=== PATIENT | female | born 1965 | race Caucasian/White ===

== ENCOUNTER 2016-11-02 18:43 | Emergency (ER) | payer MEDICARE, MEDICAID ==
[2016-11-02 19:13] VITALS: BP 96/52
[2016-11-02] MEDS ORDERED: Acetaminophen/HYDROcodone 325-5 MG Tab PO ONE (19:27)
--- NOTE | 2016-11-03 04:27 | ER ---
DATE SEEN: 11/02/2016 TIME SEEN: The patient was seen at 1900 hours. HISTORY OF PRESENT ILLNESS: This is a 51-year-old who has chronic hip pain, back pain, and is morbidly obese at 340 pounds, 5 feet plus inches and BMI of 58, comes in with a history of trying to get into a vehicle yesterday and had difficulty getting in. She did not have the entry step stool for getting out, she slid out and fell on buttock resulting in a strain in her hip and moderate pain in the right hip. She "pulled a muscle" in the right hip. She has chronic pain. Pain has now increased to 10/10. She does not use codeine because it makes her pass out. She gets along with hydrocodone. She has multiple medications on list, psychiatric medications, for anxiety, depression, fibromyalgia, headaches, and shortness of breath. MEDICATIONS: 1. Tizanidine. 2. Prednisone. 3. Oxycodone. 4. Topiramate. 5. Pregabalin. 6. Oxcarbazepine (Trileptal). 7. Nebulizers p.r.n. 8. Albuterol nebulizers p.r.n. or DuoNeb p.r.n. 9. Lasix. 10.Duloxetine. 11.Clonazepam. Today, she took two tablets as one dose of her tizanidine and feels somewhat sleepy. She is apologetic for this. Normally takes 1 tablet three times a day. She has chronic low back pain for the past 15 years and occasionally sees a chiropractor who treat the muscles. PAST MEDICAL HISTORY: No hypertension. No diabetes. REVIEW OF SYSTEMS: Denies headache, neck stiffness, shortness of breath but gets short of breath with exertion carrying groceries or other items. She has severe low back pain. Denies chest pain. Denies bladder incontinence. FAMILY HISTORY: Father had myocardial infarction. Brother and sister have sleep apnea. ALLERGIES: Codeine. PHYSICAL EXAMINATION: GENERAL: The patient is very somnolent and dropped her blood Pressure. She has a mild cough. No fever. The patient is very apologetic for coming in. Edentulous, massively obese. Markedly enlarged thighs, hips and lower legs. No edema in lower extremities. VITAL SIGNS: Blood pressure 95/52, heart rate 52, respirations 16, oxygen saturation 97%, temperature 36.3 degrees centigrade. HEENT: PERRLA intact. Pharynx without abnormality, except no teeth. NECK: No bruits in neck. LUNGS: Clear to auscultation without rales, rhonchi, or wheezes. HEART: S1, S2. No murmur. No irregular rate and rhythm. ABDOMEN: Soft, and increased abdominal girth. Thus I cannot palpate anything in the abdomen because of this. EXTREMITIES: Lower extremities, right hip slightly decreased range of motion, but without instability. Right knee without pain or discomfort, joint line. No pedal edema. Left knee is negative. Left hip is negative. Deep tendon reflexes upper extremities 1+ knee jerks. Hypoactive ankle jerks 1+. Sensation intact lower extremities. DERM: No change in dermis. ASSESSMENT: Right hip strain. I did not have her lie down. I did not go through lengthy range of motion of the hip because of her weight and discomfort of getting up and out of the wheelchair. She will be treated empirically for hip muscle strain. She has 8 tablets of hydrocodone, to get her through the weekend. No prescription given. Follow up with doctor as needed next week. Use Tylenol 1000 mg and ibuprofen 600 mg together every 6 hours for pain. DIAGNOSES: Right hip strain secondary to her fall, morbid obesity, fibromyalgia, severe chronic low back pain, anxiety, and depression. /[id number] ROHAN/JOAN FRYE
== END 2016-11-02 20:00 | disposition home or self-care (01) ==
LOC: FB.ED 18:43
DX: S76.011A Strain of muscle, fascia and tendon of right hip, initial encounter (principal); E66.01 Morbid (severe) obesity due to excess calories; M79.1 Myalgia; M54.5 Low back pain; G89.29 Other chronic pain; F41.9 Anxiety disorder, unspecified; F32.9 Major depressive disorder, single episode, unspecified; Z88.5 Allergy status to narcotic agent; W19.XXXA Unspecified fall, initial encounter
CPT/HCPCS: 99283; A9270-GY

== ENCOUNTER 2019-01-30 23:18 | Emergency (ER) | payer MEDICARE, MEDICAID ==
[2019-01-30] MEDS ORDERED: Albuterol/Ipratropium 3.0-0.5 MG/3 ML Neb Soln NEB ONE (23:24)
--- NOTE | 2019-01-30 23:25 | EDM.PDOC ---
ED HPI GENERAL MEDICAL PROBLEM - General Stated Complaint: trouble breathing Time Seen by Provider: 01/30/19 23:18 Source of Information: Reports: Patient, Family History Limitations: Reports: Physical Impairment - History of Present Illness INITIAL COMMENTS - FREE TEXT/NARRATIVE: 53 y.o.w.f came by taxi because of SON. Pt was confused on arrival, was lethargic. Pt denies drug abuse. Pt is a poor historian, no family is present. BP 84/37 RR 20 Pulse ox 94% on RA temp 36.9 Pulse 69 Onset Date: 01/30/19 Onset Time: 09:00 Duration: Hour(s): Location: Reports: Chest Quality: Reports: Ache, Same as Previous Episode Improves with: Reports: Medication Worsens with: Reports: Movement Associated Symptoms: Reports: Confusion, Cough, Shortness of Breath, Weakness - Related Data Allergies Allergy/AdvReac Type Severity Reaction Status Date / Time codeine Allergy Bradycardia Verified 01/31/19 00:28 Home Meds: Home Meds Melatonin/Pyridoxine HCl (B6) [Melatonin Tr 10 mg Tablet] 50 mg PO BEDTIME PRN 04/23/15 [History] DULoxetine HCl [Cymbalta] 60 mg PO BID 10/17/15 [History] Pregabalin [Lyrica] 150 mg PO BID 10/17/15 [History] ALPRAZolam [Xanax] 0.5 mg PO Q8H PRN 11/02/16 [History] buPROPion HCl [Wellbutrin Xl] 300 mg PO DAILY 11/02/16 [History] Acetaminophen [Tylenol Extra Strength] 1,000 mg PO ASDIRECTED 04/05/18 [History] Benzonatate [Tessalon Perle] 100 mg PO Q8H 04/05/18 [History] Furosemide 20 mg PO DAILY 04/06/18 [History] Potassium Chloride 20 meq PO DAILY #30 tablet.er 04/06/18 [Rx] Albuterol Sulfate 2.5 mg IH Q4HR PRN #1 box 01/31/19 [Rx] Albuterol [Ventolin HFA] 1 - 2 inhalation PO Q6HR PRN 01/31/19 [History] Caffeine [Alertness Aid] 1 tab PO Q4HR PRN 01/31/19 [History] Hydrocodone/Acetaminophen [Lorcet 5-325 mg Tablet] 1 tab PO BID PRN 01/31/19 [ History] Levofloxacin 500 mg PO DAILY #10 tablet 01/31/19 [Rx] tiZANidine HCl [Tizanidine HCl] 4 mg PO TID PRN 01/31/19 [History] Past Medical History HEENT History: Reports: Other (See Below) Other HEENT History: DENTAL PAIN/FRACTURE Cardiovascular History: Reports: Other (See Below) Other Cardiovascular History: fluid on legs Respiratory History: Reports: Pneumonia, Recurrent, Other (See Below) Other Respiratory History: is currently being treated for pneumonia Other Genitourinary History: bladder repair 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: Reports: Musculoskeletal History: Reports: Arthritis, Back Pain, Chronic, Fibromyalgia, Other (See Below) Other Musculoskeletal History: arthritis at the hip; chronic back pain, fibromyalgia Neurological History: Reports: Migraines Psychiatric History: Reports: Anxiety, Bipolar, Depression Endocrine/Metabolic History: Reports: Obesity/BMI 30+ - Infectious Disease History Infectious Disease History: Reports: MRSA - Past Surgical History HEENT Surgical History: Reports: Other (See Below) GI Surgical History: Reports: Other (See Below) Female Surgical History: Reports: Section, Hysterectomy, Lithotripsy /ESWL, Other (See Below) Musculoskeletal Surgical History: Reports: Other (See Below) Social & Family History - Family History Family Medical History: Noncontributory HEENT: Reports: Cataract, Otitis Media Cardiac: Reports: High Cholesterol, Other (See Below) Other Cardiac Family History: dad had heart attack, Respiratory: Reports: Sleep Apnea Other Respiratory Family Hisory: brother and nepkew has sleep apnea GI: Reports: None : Reports: None OBGYN: Reports: None Musculoskeletal: Reports: Arthritis Neurological: Reports: Seizure Psychiatric: Reports: Anxiety, Depression Endocrine/Metabolic: Reports: Diabetes, type II Hematologic: Reports: None Immunologic: Reports: None Oncologic: Reports: Other (See Below) Other Oncologic Family History: dad has hx of cancer in his mouth 2x but recovered; pt does not remember what kind of cancer. - Caffeine Use Caffeine Use: Reports: Soda ED ROS GENERAL - Review of Systems Review Of Systems: Unable To Obtain (due to confusion) Constitutional: Reports: Weakness ED EXAM, GENERAL - Physical Exam Exam: See Below Exam Limited By: Physical Impairment General Appearance: Alert, WD/WN, Moderate Distress Eye Exam: Bilateral Eye: Normal Inspection Ears: Normal External Exam, Normal Canal Ear Exam: Bilateral Ear: Auricle Normal Nose: Normal Inspection, Normal Mucosa Throat/Mouth: Normal Inspection, Normal Lips, Normal Voice, No Airway Compromise Head: Atraumatic, Normocephalic Neck: Normal Inspection, Supple, Non-Tender Respiratory/Chest: Respiratory Distress, Wheezing Cardiovascular: Normal Peripheral Pulses, Regular Rate, Rhythm, No Edema Peripheral Pulses: 2+: Brachial (L) GI/Abdominal: Normal Bowel Sounds, Soft, Non-Tender, No Organomegaly, No Mass, Pelvis Stable (Female) Exam: Deferred Rectal (Female) Exam: Deferred Back Exam: Normal Inspection, Full Range of Motion Extremities: Normal Inspection, Normal Range of Motion Neurological: Alert, CN II-XII Intact, Confused, Slow to Respond Psychiatric: Normal Affect Skin Exam: Warm, Dry, Intact, Normal Color, No Rash Lymphatic: No Adenopathy Course - Vital Signs Text/Narrative:: 53 y.o.w.f came by taxi because of SON. Pt was confused on arrival, was lethargic. Pt denies drug abuse. Pt is a poor historian, no family is present. BP 84/37 RR 20 Pulse ox 94% on RA temp 36.9 Pulse 69 PE: Morbid obese, lethargic, confused, sob Imaging: CXR: Cardiomegaly Labs: CBC nl, BMP: BUN 21, GFR 54 Ca 8.2 BUN/CR elevated UDS po for Benzos, Opioids and Tricyclics Impression: Morbi obese, Asthmatic bronchitis, UTI. UDS pos Tx: NS, Levoquin, Duo nebs/ Albuterol/Solumedrol Reexam: Pt was oriented X 3, was ambulating well in D/C BP 117/76 on D/C Plan: D/C with instructions by Taxi Last Recorded V/S: Last Vital Signs Temp 36.1 C 01/30/19 23:18 Pulse 69 01/30/19 23:18 Resp 20 01/30/19 23:18 BP 84/37 L 01/30/19 23:18 Pulse Ox 97 01/30/19 23:18 - Orders/Labs/Meds Orders: Active Orders 24 hr Category Date Time Status RT Aerosol Therapy [RC] ASDIRECTED Care 01/30/19 23:25 Active RT Aerosol Therapy [RC] ASDIRECTED Care 01/31/19 01:07 Active RT Aerosol Therapy [RC] ASDIRECTED Care 01/31/19 01:16 Active RT Aerosol Therapy [RC] ASDIRECTED Care 01/31/19 02:15 Active CXR [Chest 1V Frontal] [CR] Stat Exams 01/30/19 23:34 Taken CULTURE URINE [RM] Stat Lab 01/31/19 00:27 Received Sodium Chloride 0.9% [Normal Saline] 1,000 ml Med 01/31/19 00:45 Active IV ASDIRECTED Sodium Chloride 0.9% [Saline Flush] Med 01/30/19 23:34 Active 10 ml FLUSH ASDIRECTED PRN Peripheral IV Insertion Adult [OM.PC] Routine Oth 01/30/19 23:34 Ordered Medication Orders Sodium Chloride (Normal Saline) 1,000 mls @ 125 mls/hr IV ASDIRECTED ARTIE Last Admin: 01/31/19 00:40 Dose: 125 mls/hr Sodium Chloride (Saline Flush) 10 ml FLUSH ASDIRECTED PRN PRN Reason: Keep Vein Open Last Admin: 01/30/19 23:52 Dose: 10 ml Labs: Laboratory Tests 01/30/19 01/30/19 01/30/19 Range/Units 23:38 23:38 23:38 WBC 11.6 (4.5-12.0) X10-3/uL RBC 4.01 (3.23-5.20) x10(6)uL Hgb 11.9 (11.5-15.5) g/dL Hct 34.8 (30.0-51.3) % MCV 86.8 (80-96) fL MCH 29.6 (27.7-33.6) pg MCHC 34.1 (32.2-35.4) g/dL RDW 13.4 (11.5-15.5) % Plt Count 345 (125-369) X10(3)uL MPV 9.0 (7.4-10.4) fL Neut % (Auto) 77.3 (46-82) % Lymph % (Auto) 14.5 (13-37) % Giles % (Auto) 6.1 (4-12) % Eos % (Auto) 2 (1.0-5.0) % Baso % (Auto) 0 (0-2) % Neut # (Auto) 9.0 H (1.6-8.3) # Lymph # (Auto) 1.7 (0.6-5.0) # Giles # (Auto) 0.7 (0.0-1.3) # Eos # (Auto) 0.2 (0.0-0.8) # Baso # (Auto) 0.0 (0.0-0.2) # Sodium 141 (135-145) mmol/L Potassium 3.9 D (3.5-5.3) mmol/L Chloride 107 (100-110) mmol/L Carbon Dioxide 25 (21-32) mmol/L BUN 21 H (7-18) mg/dL Creatinine 1.0 (0.55-1.02) mg/dL Est Cr Clr Drug Dosing TNP Estimated GFR (MDRD) 58 L (>60) BUN/Creatinine Ratio 21.0 H (9-20) Glucose 160 H (80-116) mg/dL Lactic Acid 0.8 (0.4-2.2) mmol/L Calcium 8.2 L (8.6-10.2) mg/dL Urine Color (YELLOW) Urine Appearance (CLEAR) Urine pH (5.0-6.5) Ur Specific [place] (1.010-1.025) Urine Protein (NEGATIVE) mg/dL Urine Glucose (UA) (NORMAL) mg/dL Urine Ketones (NEGATIVE) mg/dL Urine Occult Blood (NEGATIVE) Urine Nitrite (NEGATIVE) Urine Bilirubin (NEGATIVE) Urine Urobilinogen (NEGATIVE) mg/dL Ur Leukocyte Esterase (NEGATIVE) Urine RBC (0-5) Urine WBC (0-5) Ur Squamous Epith Cells (NS,R,O) Urine Bacteria (NS) Urine Mucus (NS) Urine Opiates Screen (NEGATIVE) Ur Oxycodone Screen (NEGATIVE) Ur Propoxyphene Screen (NEGATIVE) Ur Barbituates Screen (NEGATIVE) Ur Tricyclics Screen (NEGATIVE) Ur Phencyclidine Scrn (NEGATIVE) Ur Amphetamine Screen (NEGATIVE) Urine MDMA Screen (NEGATIVE) U Benzodiazepines Scrn (NEGATIVE) U Cocaine Metab Screen (NEGATIVE) U Marijuana (THC) Screen (NEGATIVE) 01/31/19 01/31/19 Range/Units 00:27 00:27 WBC (4.5-12.0) X10-3/uL RBC (3.23-5.20) x10(6)uL Hgb (11.5-15.5) g/dL Hct (30.0-51.3) % MCV (80-96) fL MCH (27.7-33.6) pg MCHC (32.2-35.4) g/dL RDW (11.5-15.5) % Plt Count (125-369) X10(3)uL MPV (7.4-10.4) fL Neut % (Auto) (46-82) % Lymph % (Auto) (13-37) % Giles % (Auto) (4-12) % Eos % (Auto) (1.0-5.0) % Baso % (Auto) (0-2) % Neut # (Auto) (1.6-8.3) # Lymph # (Auto) (0.6-5.0) # Giles # (Auto) (0.0-1.3) # Eos # (Auto) (0.0-0.8) # Baso # (Auto) (0.0-0.2) # Sodium (135-145) mmol/L Potassium (3.5-5.3) mmol/L Chloride (100-110) mmol/L Carbon Dioxide (21-32) mmol/L BUN (7-18) mg/dL Creatinine (0.55-1.02) mg/dL Est Cr Clr Drug Dosing Estimated GFR (MDRD) (>60) BUN/Creatinine Ratio (9-20) Glucose (80-116) mg/dL Lactic Acid (0.4-2.2) mmol/L Calcium (8.6-10.2) mg/dL Urine Color Yellow (YELLOW) Urine Appearance Slightly cloudy (CLEAR) Urine pH 5.0 (5.0-6.5) Ur Specific [place] 1.020 (1.010-1.025) Urine Protein Negative (NEGATIVE) mg/dL Urine Glucose (UA) Normal (NORMAL) mg/dL Urine Ketones Negative (NEGATIVE) mg/dL Urine Occult Blood Negative (NEGATIVE) Urine Nitrite Negative (NEGATIVE) Urine Bilirubin Small H (NEGATIVE) Urine Urobilinogen 1 H (NEGATIVE) mg/dL Ur Leukocyte Esterase Large H (NEGATIVE) Urine RBC 0-5 (0-5) Urine WBC 5-10 H (0-5) Ur Squamous Epith Cells Moderate H (NS,R,O) Urine Bacteria Moderate H (NS) Urine Mucus Moderate H (NS) Urine Opiates Screen Positive H (NEGATIVE) Ur Oxycodone Screen Negative (NEGATIVE) Ur Propoxyphene Screen Negative (NEGATIVE) Ur Barbituates Screen Negative (NEGATIVE) Ur Tricyclics Screen Positive H (NEGATIVE) Ur Phencyclidine Scrn Negative (NEGATIVE) Ur Amphetamine Screen Negative (NEGATIVE) Urine MDMA Screen Negative (NEGATIVE) U Benzodiazepines Scrn Positive H (NEGATIVE) U Cocaine Metab Screen Negative (NEGATIVE) U Marijuana (THC) Screen Negative (NEGATIVE) Meds: Medications Generic Name Dose Route Start Last Admin Trade Name Freq PRN Reason Stop Dose Admin Sodium Chloride 1,000 mls @ 125 mls/hr 01/31/19 00:45 01/31/19 00:40 Normal Saline IV 125 mls/hr ASDIRECTED ARTIE Administration Sodium Chloride 10 ml 01/30/19 23:34 01/30/19 23:52 Saline Flush FLUSH 10 ml ASDIRECTED PRN Administration Keep Vein Open Discontinued Medications Generic Name Dose Route Start Last Admin Trade Name Freq PRN Reason Stop Dose Admin Albuterol 10 mg 01/31/19 01:06 01/31/19 01:24 Proventil [facility] 01/31/19 01:07 Not Given ONETIME ONE Albuterol 2.5 mg 01/31/19 01:15 01/31/19 01:25 Proventil [facility] 01/31/19 01:16 2.5 mg ONETIME ONE Administration Albuterol 2.5 mg 01/31/19 02:14 01/31/19 02:18 Proventil [facility] 01/31/19 02:15 2.5 mg ONETIME ONE Administration Albuterol/Ipratropium 3 ml 01/30/19 23:24 01/30/19 23:38 Duoneb 3.0-0.5 Mg/3 Ml [facility] 01/30/19 23:25 3 ml ONETIME ONE Administration Levofloxacin/Dextrose 500 mg/ 100 mls @ 100 mls/hr 01/31/19 00:42 01/31/19 00 :50 Premix IV 01/31/19 01:41 100 mls/hr ONETIME ONE Administration Methylprednisolone Sodium Succinate 125 mg 01/30/19 23:33 01/30/19 23:52 Solu-Medrol IVPUSH 01/30/19 23:34 125 mg ONETIME ONE Administration Departure - Departure Time of Disposition: 02:51 Disposition: Home, Self-Care 01 Condition: Good Clinical Impression: Morbidly obese UTI (urinary tract infection) Qualifiers: Urinary tract infection type: acute cystitis Hematuria presence: without hematuria Qualified Code(s): N30.00 - Acute cystitis without hematuria - Discharge Information Prescriptions: Albuterol Sulfate 2.5 mg IH Q4HR PRN #1 box PRN Reason: sob Levofloxacin 500 mg PO DAILY #10 tablet Instructions: Urinary Tract Infection, Adult, Levofloxacin tablets Referrals: PCP,None [Primary Care Provider] - Forms: ED Department Discharge Additional Instructions: Please take the Abx and neb treatments as recommended, please f/u, please come back if your symptoms get worse acutely. - My Orders Last 24 Hours: My Active Orders 01/30/19 23:25 RT Aerosol Therapy [RC] ASDIRECTED 01/30/19 23:34 CXR [Chest 1V Frontal] [CR] Stat Sodium Chloride 0.9% [Saline Flush] 10 ml FLUSH ASDIRECTED PRN Peripheral IV Insertion Adult [OM.PC] Routine 01/31/19 00:27 CULTURE URINE [RM] Stat 01/31/19 00:45 Sodium Chloride 0.9% [Normal Saline] 1,000 ml IV ASDIRECTED 01/31/19 01:07 RT Aerosol Therapy [RC] ASDIRECTED 01/31/19 01:16 RT Aerosol Therapy [RC] ASDIRECTED 01/31/19 02:15 RT Aerosol Therapy [RC] ASDIRECTED - Assessment/Plan Last 24 Hours: My Active Orders 01/30/19 23:25 RT Aerosol Therapy [RC] ASDIRECTED 01/30/19 23:34 CXR [Chest 1V Frontal] [CR] Stat Sodium Chloride 0.9% [Saline Flush] 10 ml FLUSH ASDIRECTED PRN Peripheral IV Insertion Adult [OM.PC] Routine 01/31/19 00:27 CULTURE URINE [RM] Stat 01/31/19 00:45 Sodium Chloride 0.9% [Normal Saline] 1,000 ml IV ASDIRECTED 01/31/19 01:07 RT Aerosol Therapy [RC] ASDIRECTED 01/31/19 01:16 RT Aerosol Therapy [RC] ASDIRECTED 01/31/19 02:15 RT Aerosol Therapy [RC] ASDIRECTED
[2019-01-30] MEDS ORDERED: methylPREDNISolone Sodium Succinate 125 MG/2 ML SDV IVPUSH ONE (23:33)
[2019-01-30] MEDS ORDERED: Sodium Chloride 0.9% 10 ML Syringe FLUSH PRN (23:34)
[2019-01-31] MEDS ORDERED: Levofloxacin/Dextrose 5%-Water 500 MG in Premix Bag 1 BAG IV ONE (00:42)
[2019-01-31] MEDS ORDERED: Sodium Chloride 0.9% 1,000 ML IV SCH (00:45)
[2019-01-31] MEDS ORDERED: Albuterol 0.5% 5 MG/ML Neb Soln 20 ML Bottle NEB ONE (01:06)
[2019-01-31] MEDS ORDERED: Albuterol 0.083% 2.5 MG/3 ML Neb Soln NEB ONE ×2 (01:15→02:14)
[2019-01-31 06:17] VITALS: BP 117/67
== END 2019-01-31 03:10 | disposition home or self-care (01) ==
LOC: FB.ED 23:18
DX: N30.00 Acute cystitis without hematuria (principal); J45.909 Unspecified asthma, uncomplicated; R82.5 Elevated urine levels of drugs, medicaments and biological substances; F41.9 Anxiety disorder, unspecified; F31.9 Bipolar disorder, unspecified; E66.01 Morbid (severe) obesity due to excess calories; Z88.5 Allergy status to narcotic agent; Z79.899 Other long term (current) drug therapy; Z68.43 Body mass index [BMI] 50.0-59.9, adult; F19.10 Other psychoactive substance abuse, uncomplicated
CPT/HCPCS: 36415; 71045; 80048; 80305-QW; 81001; 83605; 85025; 87086; 87088; 87186; 94640; 96361; 96365; 96375; 99284-25; J1956; J2930; J7030; J7620-GY

== ENCOUNTER 2019-02-05 00:52 | Emergency (ER) | payer MEDICARE, MEDICAID ==
--- NOTE | 2019-02-05 01:52 | EDM.PDOC ---
ED HPI GENERAL MEDICAL PROBLEM - General Chief Complaint: Respiratory Problem Stated Complaint: COUGHING Time Seen by Provider: 02/05/19 01:15 Source of Information: Reports: Patient History Limitations: Reports: No Limitations - History of Present Illness INITIAL COMMENTS - FREE TEXT/NARRATIVE: patient comes in tonight with complaint of severe coughing which made it impossible for her to sleep. She reports this has been going on over the past month. She has been evaluated multiple times, had treatment with Augmentin, prednisone, inhalers, and most recently levaquin. She denies chest pain, except after a severe coughing spell. She reports she used her inhaler right before bed, when she took all of her other meds. She has been doing it every 6-8 hours. She also has a nebulizer machine, which she occasionally uses, most recently at 2pm today. She is unable to tell me what she took before bed. She notes a little swelling in her ankles, and that sometimes she wakes up and her whole body hurts. She denies fever, chills, sweats, pleuritic chest pain, shortness of breath with exertion, rhinitis, facial pain, nausea, vomiting, urinary symptoms. She also denies any heaviness in her chest, left arm or jaw pain, epigastric pain. She denies tooth pain or drainage down back of her throat. No recent change in weight. - Related Data Allergies Allergy/AdvReac Type Severity Reaction Status Date / Time codeine Allergy Bradycardia Verified 02/05/19 01:02 Home Meds: Home Meds Melatonin/Pyridoxine HCl (B6) [Melatonin Tr 10 mg Tablet] 50 mg PO BEDTIME PRN 04/23/15 [History] DULoxetine HCl [Cymbalta] 60 mg PO BID 10/17/15 [History] Pregabalin [Lyrica] 150 mg PO BID 10/17/15 [History] ALPRAZolam [Xanax] 0.5 mg PO Q8H PRN 11/02/16 [History] buPROPion HCl [Wellbutrin Xl] 300 mg PO DAILY 11/02/16 [History] Acetaminophen [Tylenol Extra Strength] 1,000 mg PO ASDIRECTED 04/05/18 [History] Benzonatate [Tessalon Perle] 100 mg PO Q8H 04/05/18 [History] Furosemide 20 mg PO DAILY 04/06/18 [History] Potassium Chloride 20 meq PO DAILY #30 tablet.er 04/06/18 [Rx] Albuterol Sulfate 2.5 mg IH Q4HR PRN #1 box 01/31/19 [Rx] Albuterol [Ventolin HFA] 1 - 2 inhalation PO Q6HR PRN 01/31/19 [History] Caffeine [Alertness Aid] 1 tab PO Q4HR PRN 01/31/19 [History] Hydrocodone/Acetaminophen [Lorcet 5-325 mg Tablet] 1 tab PO BID PRN 01/31/19 [ History] Levofloxacin 500 mg PO DAILY #10 tablet 01/31/19 [Rx] tiZANidine HCl [Tizanidine HCl] 4 mg PO TID PRN 01/31/19 [History] Past Medical History HEENT History: Reports: Other (See Below) Other HEENT History: DENTAL PAIN/FRACTURE Cardiovascular History: Reports: Other (See Below) Other Cardiovascular History: fluid on legs Respiratory History: Reports: Pneumonia, Recurrent, Other (See Below) (ongoing cough despite recurrent treatment for asthma and pneumonia) Other Respiratory History: is currently being treated for pneumonia Other Genitourinary History: 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: Musculoskeletal History: Reports: Arthritis, Back Pain, Chronic, Fibromyalgia, Other (See Below) Other Musculoskeletal History: arthritis at the hip; chronic back pain, fibromyalgia Neurological History: Reports: Migraines Psychiatric History: Reports: Anxiety, Bipolar, Depression Endocrine/Metabolic History: Reports: Obesity/BMI 30+ - Infectious Disease History Infectious Disease History: Reports: MRSA - Past Surgical History HEENT Surgical History: Reports: Other (See Below) GI Surgical History: Reports: Other (See Below) Female Surgical History: Reports: Section, Hysterectomy, Lithotripsy /ESWL, Other (See Below) Musculoskeletal Surgical History: Reports: Other (See Below) Social & Family History - Family History Family Medical History: Noncontributory HEENT: Reports: Cataract, Otitis Media Cardiac: Reports: High Cholesterol, Other (See Below) Other Cardiac Family History: dad had heart attack, Respiratory: Reports: Sleep Apnea Other Respiratory Family Hisory: brother and nepkew has sleep apnea GI: Reports: None : Reports: None OBGYN: Reports: None Musculoskeletal: Reports: Arthritis Neurological: Reports: Seizure Psychiatric: Reports: Anxiety, Depression Endocrine/Metabolic: Reports: Diabetes, type II Hematologic: Reports: None Immunologic: Reports: None Oncologic: Reports: Other (See Below) Other Oncologic Family History: dad has hx of cancer in his mouth 2x but recovered; pt does not remember what kind of cancer. - Tobacco Use Smoking Status *Q: Current Status Unknown Tobacco Use Comment: states she has smoked on and off for years, a few months and a few cigarettes at a time. - Caffeine Use Caffeine Use: Reports: Soda - Alcohol Use Alcohol Use History: No Alcohol Use Comment: denies any use, but states she used to drink socially - Recreational Drug Use Recreational Drug Use: No Recreational Drug Use Comment: adamantly denies THC, or any other substances. - Living Situation & Occupation Occupation: Disabled Social History Comment: lives alone in small apartment. Maybe some dust. States no mold, or it might be covered up by paint. No pets. babysits for her grandson 1-2 weeks per month but states she wants to cut back due to her health problems. ED ROS GENERAL - Review of Systems Review Of Systems: ROS reveals no pertinent complaints other than HPI. ED EXAM, GENERAL - Physical Exam Exam: See Below Free Text/Narrative:: General: somnalent, awakes to fairly loud voice, needs constantly to be woken up during interview. Pupils pinpoint, conjunctiva clear, no nystagmus. Facial muscle symmetric, throat is without erythema, cobblestoning or tonsillar exudates, no sinus tenderness, tympanic membranes clear, no cervical lymphadenopathy. Lungs are clear with decreased air movement in bases, no wheezes, no crackles. Heart is regular and very difficult to auscultate; I do not hear a murmur but sounds are soft and very distant due to body habitus. Peripheral pulses +2/4. No lower extremity edema, her ankles are maybe a bit swollen but it is difficult to distinguish from obesity, certainly there is no pitting edema, calves are same size and nontender. No skin lesions, track ramirez , not diaphoretic. No costovertebral angle tenderness. Abdomen is obese with normal bowel sounds and nontender. Oriented to self, place, time, events, strength is equal side to side, facial muscles symmetric. Psych: drifts off to sleep while talking, even when sitting up. Speech otherwise clear, normal rate , no tremor or other psychomotor abnormalities. Course - Vital Signs Text/Narrative:: initial evaluation completed. Patient is somnalent, complains of cough but has not been heard to cough since arrival. She has been adequately treated for pneumonia with levaquin and dose of solumedrol, had lab work on 01/31 which did not show an elevated wbc count. She does not have symptoms of an upper respiratory tract infection. She has used her inhaler and nebulizer infrequently, states they sometimes seem to help, but then they don't. Her sats are 98% even when she is snoring, she has a heart rate around 60, and is completely nontoxic except for her sleepiness. Last Recorded V/S: Last Vital Signs Temp 36.6 C 02/05/19 00:52 Pulse 63 02/05/19 00:52 Resp 18 02/05/19 00:52 BP 104/45 L 02/05/19 00:52 Pulse Ox 98 02/05/19 00:52 - Orders/Labs/Meds Orders: Active Orders 24 hr Category Date Time Status CXR [Chest 2V] [CR] Stat Exams 02/05/19 01:36 Ordered - Re-Assessments/Exams Free Text/Narrative Re-Assessment/Exam: 02/05/19 CXR reviewed, no pleural fluid seen, no infiltrate, cardiomegaly similar to prior xray. I do not think she is in heart failure based on the xray and clinical exam. She has not been heard to cough since arriving here, BP is slightly low and this was confirmed manually but she is mentating normally , has good peripheral pulses and is not orthostatic. She is very somnolent, and her UDS on her previous visit was positive for opiates, tricyclics, and benzodiazepines. 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 There are occasionally errors or crossover substances on a UDS so I am not sure what to make of that without a confirmatory. I wonder if she has an allergy to something in her apartment and would benefit from an antihistamine, and made this recommendation. Her sats have remained in the 96-98% even when she is sleeping here. Her BP is low but her HR is also low and she is asymptomatic. Discharge to home. Departure - Departure Time of Disposition: 02:20 Disposition: Home, Self-Care 01 Condition: Fair Clinical Impression: Cough - Discharge Information *PRESCRIPTION DRUG MONITORING PROGRAM REVIEWED*: Yes *COPY OF PRESCRIPTION DRUG MONITORING REPORT IN PATIENT RACHEL: No Instructions: Allergies, Adult, [id number] Referrals: PCP,None [Primary Care Provider] - Additional Instructions: your lungs are clear tonight. You also weren't coughing while at the emergency room, which makes me wonder if you have some kind of allergy to something in your apartment. recommendations: use your nebulizer machine every 4 hours if needed for COUGH or wheezing feeling when at home. Use your inhaler if you are out and about and use 6 puffs when you use it. try an over the counter allergy medication such as zyrtec, rashard, claritin, or generic equivalent. Get just plain medication, no "-D" on the end. You should take this daily for 2 weeks to see if it helps. if this seems to help, you may also want to have your apartment inspected for mold or other significant allergens, or get it deep cleaned if you are able or can get someone to help you some medications can cause a chronic cough - I don't see any on your list, but you may want to ask your regular doctor about this. Also I am curious about your heart function. Other treatments for cough -- honey or cough drops are helpful to suck on if fever, severe chest pain, pain in your upper belly that does not go away especially if accompanied by profuse sweating, nausea or vomiting, difficulty going about your daily activities due to shortness of breath, return to ER if difficulty lying flat in bed, ongoing cough despite treatments, worsening swelling of your legs or significant change in weight, see your regular doctor. - My Orders Last 24 Hours: My Active Orders 02/05/19 01:36 CXR [Chest 2V] [CR] Stat - Assessment/Plan Last 24 Hours: My Active Orders 02/05/19 01:36 CXR [Chest 2V] [CR] Stat
[2019-02-05 02:51] VITALS: BP 85/38
--- NOTE | 2019-02-05 11:34 | CR ---
INDICATION: Ongoing cough. CHEST: PA and lateral views of the chest were obtained 02/05/19 and compared with 01/30/19 and 04/08/18. The heart is enlarged. Evidence of exogenous obesity is noted. Bony structures appear to be grossly intact. Markings appear similar to previous examination with no definite active infiltrate or effusion. IMPRESSION: 1. No acute process. 2. Cardiomegaly. 3. Exogenous obesity. MTDD
== END 2019-02-05 02:45 | disposition home or self-care (01) ==
LOC: FB.ED 00:52
DX: R05 Cough (principal); M19.90 Unspecified osteoarthritis, unspecified site; E66.9 Obesity, unspecified; F41.9 Anxiety disorder, unspecified; Z90.710 Acquired absence of both cervix and uterus; Z79.899 Other long term (current) drug therapy; Z88.5 Allergy status to narcotic agent
CPT/HCPCS: 71046; 99283-25

== ENCOUNTER 2019-05-03 21:17 | Emergency (ER) | payer MEDICARE, MEDICAID ==
--- NOTE | 2019-05-03 21:45 | EDM.PDOC ---
ED HPI GENERAL MEDICAL PROBLEM - General Chief Complaint: Lower Extremity Injury/Pain Stated Complaint: RT KNEE PAIN Time Seen by Provider: 05/03/19 21:43 Source of Information: Reports: Patient History Limitations: Reports: No Limitations - History of Present Illness INITIAL COMMENTS - FREE TEXT/NARRATIVE: 54-year-old female who reports bilateral knee pain for 2-3 years that waxes and wanes. Today at approximate 1 PM she developed worsening pain in her right knee and she tells me that she took Tylenol for the pain and that seemed to alleviate the pain until approximately an hour or 2 prior to her arrival here and she developed worsening of the pain and that caused her to come to the emergency department for evaluation. She reports that her pain as a 10/10. It is a sharp, aching and throbbing pain. It is worse with movement and with palpation. This is same pain that she has had for 2-3 years only worse today. No redness in the area. She's had no fever. There is no swelling in the knee. There is no history of trauma. She has no other joint pains. She's had no nausea or vomiting. There are no other associated signs or symptoms. There are no other modifying factors. Onset: Other (Ongoing pain for years but worse since 1 PM today in her right knee) Duration: Getting Worse (Since her medication wore off) Location: Reports: Lower Extremity, Right (Right knee) Quality: Reports: Ache, Sharp Severity: Severe (10/10 according to the patient) Improves with: Reports: Medication, Rest Worsens with: Reports: Other (Palpation. 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: Acetaminophen (Earlier today but she tells me she has no further medication at home.) Right knee Pain Score (Numeric/FACES): 10 - Related Data Allergies Allergy/AdvReac Type Severity Reaction Status Date / Time codeine Allergy Bradycardia Verified 05/03/19 21:44 Home Meds: Home Meds Melatonin/Pyridoxine HCl (B6) [Melatonin Tr 10 mg Tablet] 50 mg PO BEDTIME PRN 04/23/15 [History] DULoxetine HCl [Cymbalta] 60 mg PO BID 10/17/15 [History] Pregabalin [Lyrica] 150 mg PO BID 10/17/15 [History] ALPRAZolam [Xanax] 0.5 mg PO Q8H PRN 11/02/16 [History] buPROPion HCl [Wellbutrin Xl] 300 mg PO DAILY 11/02/16 [History] Acetaminophen [Tylenol Extra Strength] 1,000 mg PO ASDIRECTED 04/05/18 [History] Benzonatate [Tessalon Perle] 100 mg PO Q8H 04/05/18 [History] Furosemide 20 mg PO DAILY 04/06/18 [History] Potassium Chloride 20 meq PO DAILY #30 tablet.er 04/06/18 [Rx] Albuterol Sulfate 2.5 mg IH Q4HR PRN #1 box 01/31/19 [Rx] Albuterol [Ventolin HFA] 1 - 2 inhalation PO Q6HR PRN 01/31/19 [History] Caffeine [Alertness Aid] 1 tab PO Q4HR PRN 01/31/19 [History] Hydrocodone/Acetaminophen [Lorcet 5-325 mg Tablet] 1 tab PO BID PRN 01/31/19 [ History] Levofloxacin 500 mg PO DAILY #10 tablet 01/31/19 [Rx] tiZANidine HCl [Tizanidine HCl] 4 mg PO TID PRN 01/31/19 [History] Acetaminophen [Tylenol Extra Strength] 1,000 mg PO Q6H PRN #24 tab 05/03/19 [Rx] Ibuprofen 600 mg PO Q6H PRN #20 tablet 05/03/19 [Rx] Past Medical History Respiratory History: Reports: Pneumonia, Recurrent Musculoskeletal History: Reports: Arthritis, Back Pain, Chronic, Fibromyalgia Other Musculoskeletal History: Bilateral leg edema, chronic Neurological History: Reports: Migraines Psychiatric History: Reports: Anxiety, Bipolar, Depression Endocrine/Metabolic History: Reports: Obesity/BMI 30+ - Infectious Disease History Infectious Disease History: Reports: MRSA - Past Surgical History HEENT Surgical History: Reports: Other (See Below) GI Surgical History: Reports: Bariatric Procedure (Gastric bypass) Female Surgical History: Reports: Section (2), D&C, Hysterectomy Musculoskeletal Surgical History: Reports: Other (See Below) (Bone spur surgery on right foot.) Social & Family History - Family History HEENT: Reports: Cataract, Otitis Media Cardiac: Reports: High Cholesterol, Other (See Below) Other Cardiac Family History: dad had heart attack, Respiratory: Reports: Sleep Apnea Other Respiratory Family Hisory: brother and betty has sleep apnea GI: Reports: None : Reports: None OBGYN: Reports: None Musculoskeletal: Reports: Arthritis Neurological: Reports: Seizure Psychiatric: Reports: Anxiety, Depression Endocrine/Metabolic: Reports: Diabetes, type II Hematologic: Reports: None Immunologic: Reports: None Oncologic: Reports: Other (See Below) Other Oncologic Family History: dad has hx of cancer in his mouth 2x but recovered; pt does not remember what kind of cancer. - Tobacco Use Smoking Status *Q: Current Some Day Smoker Years of Tobacco use: 35 Packs/Tins Daily: 0.2 - Caffeine Use Caffeine Use: Reports: Soda - Alcohol Use Alcohol Use History: No - Recreational Drug Use Recreational Drug Use: No - Living Situation & Occupation Occupation: Disabled Review of Systems - Review of Systems Review Of Systems: See Below Constitutional: Reports: No Symptoms Eyes: Reports: No Symptoms Ears: Reports: No Symptoms Nose: Reports: No Symptoms Mouth/Throat: Reports: No Symptoms Respiratory: Reports: No Symptoms Cardiovascular: Reports: No Symptoms GI/Abdominal: Reports: No Symptoms Genitourinary: Reports: No Symptoms Musculoskeletal: Reports: Joint Pain (Right knee pain, chronic but worse today.) Skin: Reports: No Symptoms Neurological: Reports: No Symptoms ED EXAM, GENERAL - Physical Exam Exam: See Below Exam Limited By: No Limitations General Appearance: Alert, No Apparent Distress, Obese Eye Exam: Bilateral Eye: EOMI, Normal Inspection, PERRL Ears: Normal External Exam, Hearing Grossly Normal Ear Exam: Bilateral Ear: Auricle Normal Nose: Normal Inspection, Normal Mucosa, No Blood Throat/Mouth: Normal Inspection, Normal Lips, Normal Teeth, Normal Gums, Normal Oropharynx, Normal Voice, No Airway Compromise Neck: Normal Inspection, Supple, Non-Tender, Full Range of Motion Respiratory/Chest: No Respiratory Distress, Lungs Clear, Normal Breath Sounds, No Accessory Muscle Use, Chest Non-Tender Cardiovascular: Normal Peripheral Pulses, Regular Rate, Rhythm, No Murmur Peripheral Pulses: 2+: Radial (L), Radial (R), Dorsalis Pedis (L), Dorsalis Pedis (R) GI/Abdominal: Normal Bowel Sounds, Soft, Non-Tender, No Mass Back Exam: Normal Inspection Extremities: Normal Inspection, Normal Range of Motion, Normal Capillary Refill , Pedal Edema (Trace 1+). No: Joint Swelling, Increased Warmth, Redness Neurological: Alert, Oriented, CN II-XII Intact, Normal Cognition, No Motor/ Sensory Deficits Skin Exam: Warm, Dry, Intact, Normal Color, No Rash Course - Vital Signs Last Recorded V/S: Last Vital Signs Temp 36.9 C 05/03/19 21:25 Pulse 86 05/03/19 21:25 Resp 18 05/03/19 21:25 BP 121/74 05/03/19 21:25 Pulse Ox 96 05/03/19 21:25 - Orders/Labs/Meds Orders: Active Orders 24 hr Category Date Time Status Ibuprofen [Motrin] Med 05/03/19 21:54 Once 800 mg PO ONETIME ONE - Re-Assessments/Exams Free Text/Narrative Re-Assessment/Exam: 05/03/19 22:03: Patient with chronic right knee pain that is worse per her reports today. There is no evidence of infection. There is no effusion. She has full range of motion without limit. There is no gross instability. She tells me that the Tylenol seemed to relieve her pain but she has no more at home nor does she have any ibuprofen. I will give the patient a dose of ibuprofen now and have told her that she needs to follow-up with her primary provider. I will give her a prescription for Tylenol and for ibuprofen. Departure - Departure Time of Disposition: 22:05 Disposition: Home, Self-Care 01 Condition: Good Clinical Impression: Right knee pain Qualifiers: Chronicity: unspecified Qualified Code(s): M25.561 - Pain in right knee Chronic pain Qualifiers: Chronic pain type: chronic pain syndrome Qualified Code(s): G89.4 - Chronic pain syndrome - Discharge Information Prescriptions: Acetaminophen [Tylenol Extra Strength] 1,000 mg PO Q6H PRN #24 tab PRN Reason: Pain Ibuprofen 600 mg PO Q6H PRN #20 tablet PRN Reason: Pain Instructions: Knee Pain, Adult, [id number] Referrals: Sonal Bustillo NP [Primary Care Provider] - Forms: ED Department Discharge Additional Instructions: I am unsure of the cause of your right knee pain but I think that it is most probably due to arthritis in your right knee. There did not appear to be any infection or inflammation in your knee at this time. You should take ibuprofen and Tylenol as needed for pain. You should follow-up with your primary provider about your knee in the next 1-2 weeks. Back to the emergency department for redness, increased swelling, fever or any other concerning sign or symptom. - My Orders Last 24 Hours: My Active Orders 05/03/19 21:54 Ibuprofen [Motrin] 800 mg PO ONETIME ONE - Assessment/Plan Last 24 Hours: My Active Orders 05/03/19 21:54 Ibuprofen [Motrin] 800 mg PO ONETIME ONE
[2019-05-03] MEDS: Ibuprofen 800 MG Tab PO ONE (21:59)
[2019-05-03 22:17] VITALS: BP 115/78
== END 2019-05-03 22:18 | disposition home or self-care (01) ==
LOC: FB.ED 21:17
DX: G89.4 Chronic pain syndrome (principal); M25.561 Pain in right knee; F41.9 Anxiety disorder, unspecified; F32.9 Major depressive disorder, single episode, unspecified; G43.909 Migraine, unspecified, not intractable, without status migrainosus; F17.210 Nicotine dependence, cigarettes, uncomplicated; Z88.5 Allergy status to narcotic agent; Z79.899 Other long term (current) drug therapy
CPT/HCPCS: 99283; A9270

== ENCOUNTER 2022-11-03 08:57 | Emergency (ER) | payer MEDICARE, MEDICAID ==
[2022-11-03] MEDS ORDERED: Acetaminophen 500 MG Tab PO ONE (09:27)
[2022-11-03] MEDS ORDERED: Ketorolac 30 MG/ML SDV IM ONE (09:27)
[2022-11-03] MEDS ORDERED: Cyclobenzaprine 10 MG Tab PO ONE (09:27)
[2022-11-03] MEDS ORDERED: diphenhydrAMINE 50 MG Cap PO ONE (09:27)
[2022-11-03 10:17] VITALS: BP 115/66; PULSE 67
== END 2022-11-03 11:08 | disposition home or self-care (01) ==
LOC: FB.ED 08:57
DX: S39.012A Strain of muscle, fascia and tendon of lower back, initial encounter (principal); M19.90 Unspecified osteoarthritis, unspecified site; E66.9 Obesity, unspecified; Z68.43 Body mass index [BMI] 50.0-59.9, adult; Z88.5 Allergy status to narcotic agent; Z79.899 Other long term (current) drug therapy; X50.0XXA Overexertion from strenuous movement or load, initial encounter
CPT/HCPCS: 96372; 99283; A9270-GY; J1885

== ENCOUNTER 2023-04-05 05:34 | Emergency (ER) | payer MEDICARE, MEDICAID ==
[2023-04-05] MEDS ORDERED: traMADol 50 MG Tab PO ONE (05:35)
[2023-04-05 05:55] VITALS: BP 158/81; PULSE 92
[2023-04-05] MEDS ORDERED: Acetaminophen/HYDROcodone 325-5 MG Tab PO STA (05:55)
[2023-04-05 06:14] LABS: BASOPHILS ABSOLUTE AUTO 0.1 x10-3/uL (0.0-0.1); EOSINOPHILS ABSOLUTE AUTO 0.3 x10-3/uL (0.0-0.8); EOSINOPHILS PERCENT AUTO 4.4 % (0.6-8.1); HEMATOCRIT 35.2 % (34.2-48.2); HEMOGLOBIN 11.5 g/dL (11.4-15.5); LYMPHOCYTES ABSOLUTE AUTO 1.3 x10-3/uL (1.0-4.4); LYMPHOCYTES PERCENT AUTO 20.2 % (18.4-52.1); MEAN CORPUSCULAR HEMOGLOBIN 27.1 pg (23.9-33.9); MEAN CORPUSCULAR HGB CONC 32.7 g/dL (31.9-34.8); MEAN CORPUSCULAR VOLUME 82.9 fL (76.7-100.5); MEAN PLATELET VOLUME 8.8 fL (7.1-12.4); MONOCYTES ABSOLUTE AUTO 0.7 x10-3/uL (0.3-1.0); MONOCYTES PERCENT AUTO 11.3 % (4.4-15.7); NEUTROPHILS ABSOLUTE AUTO 4.1 x10-3/uL (1.5-6.3); NEUTROPHILS PERCENT AUTO 63.1 % (30.8-76.2); PLATELET COUNT,PLT 256 x10(3)uL (151-488); RED BLOOD CELL COUNT 4.25 x10(6)uL (3.60-5.20); RED CELL DISTRIBUTION WIDTH 15.5 % (12.3-16.5); WHITE BLOOD CELL COUNT,WBC 6.4 x10-3/uL (3.0-10.3)
[2023-04-05 06:29] LABS: D-DIMER QUANTITATIVE 0.39 mg/LFEU (0.0-0.59)
[2023-04-05 06:34] LABS: INR 1.08 (1.00-1.24); PROTHROMBIN TIME 11.1 sec (9.0-11.1)
[2023-04-05] MEDS ORDERED: Ondansetron 4 MG/2 ML SDV IVPUSH ONE (07:12)
[2023-04-05] MEDS ORDERED: Sodium Chloride 0.9% 1,000 ML IV SCH (07:15)
== END 2023-04-05 07:34 | disposition home or self-care (01) ==
LOC: FB.ED 05:34
DX: M25.562 Pain in left knee (principal); M17.0 Bilateral primary osteoarthritis of knee; E66.9 Obesity, unspecified; Z68.43 Body mass index [BMI] 50.0-59.9, adult; Z88.5 Allergy status to narcotic agent; Z79.899 Other long term (current) drug therapy
CPT/HCPCS: 36415; 73562; 85025; 85379; 85610; 85730; 99283; A9270

== ENCOUNTER 2023-04-06 23:27 | Emergency (ER) | payer MEDICARE, MEDICAID ==
[2023-04-07 00:05] VITALS: BP 109/64; PULSE 76
[2023-04-07] MEDS ORDERED: Orphenadrine 60 MG/2 ML Inj IM ONE (00:53)
== END 2023-04-07 04:11 | disposition home or self-care (01) ==
LOC: FB.ED 23:27
DX: S06.0X0A Concussion without loss of consciousness, initial encounter (principal); S16.1XXA Strain of muscle, fascia and tendon at neck level, initial encounter; S00.31XA Abrasion of nose, initial encounter; E66.9 Obesity, unspecified; Z79.899 Other long term (current) drug therapy; Z88.5 Allergy status to narcotic agent; W01.198A Fall on same level from slipping, tripping and stumbling with subsequent striking against other object, initial encounter
CPT/HCPCS: 70450; 72125; 96372; 99283; 99284; J2360

== ENCOUNTER 2023-04-30 21:35 | Emergency (ER) | payer MEDICARE, MEDICAID ==
[2023-04-30] MEDS ORDERED: Propofol 200 MG/20 ML SDV IV ONE (21:36)
[2023-04-30] MEDS ORDERED: Rocuronium 100 MG/10 ML MDV IV ONE (21:36)
[2023-04-30] MEDS ORDERED: Lidocaine 2% 5 ML SDV IV ONE (21:36)
[2023-04-30] MEDS ORDERED: Midazolam 1 MG/ML 2 ML SDV IV ONE (21:36)
[2023-04-30] MEDS ORDERED: Sodium Chloride 0.9% 500 ML IV ONE (21:43)
[2023-04-30] MEDS ORDERED: Sodium Chloride 0.9% 10 ML Syringe FLUSH PRN (21:43)
[2023-04-30] MEDS ORDERED: Naloxone 0.4 MG/ML SDV IVPUSH ONE (21:43)
[2023-04-30 21:55] LABS: BASOPHILS PERCENT AUTO 0.7 % (0.2-1.5); EOSINOPHILS ABSOLUTE AUTO 0.2 x10-3/uL (0.0-0.8); EOSINOPHILS PERCENT AUTO 5.1 % (0.6-8.1); HEMATOCRIT 35.7 % (34.2-48.2); HEMOGLOBIN 11.7 g/dL (11.4-15.5); LYMPHOCYTES PERCENT AUTO 23.9 % (18.4-52.1); MEAN CORPUSCULAR HEMOGLOBIN 27.4 pg (23.9-33.9); MEAN CORPUSCULAR HGB CONC 32.9 g/dL (31.9-34.8); MEAN PLATELET VOLUME 8.9 fL (7.1-12.4); MONOCYTES ABSOLUTE AUTO 0.4 x10-3/uL (0.3-1.0); NEUTROPHILS ABSOLUTE AUTO 2.5 x10-3/uL (1.5-6.3); NEUTROPHILS PERCENT AUTO 61.3 % (30.8-76.2); PLATELET COUNT,PLT 232 x10(3)uL (151-488); RED BLOOD CELL COUNT 4.29 x10(6)uL (3.60-5.20); WHITE BLOOD CELL COUNT,WBC 4.1 x10-3/uL (3.0-10.3)
[2023-04-30 22:03] LABS: BLOOD UREA NITROGEN,BUN 20 mg/dL (7-18); BUN/CREATININE RATIO 18.2 (9-20); CALCIUM 8.6 mg/dL (8.6-10.2); CARBON DIOXIDE,CO2 22 mmol/L (21-32); CHLORIDE,CL 103 mmol/L (100-110); CREATININE 1.1 mg/dL (0.55-1.02); ESTIMATED GFR 59 mL/min (>60); GLUCOSE RANDOM 116 mg/dL (80-116); POTASSIUM,K 3.4 mmol/L (3.5-5.3); SODIUM,NA 138 mmol/L (135-145)
[2023-04-30 22:06] LABS: BASE EXCESS VENOUS,POC -4 mmol/L (-2 - 3+); PCO2 VENOUS,POC 33 mmHg (41-51); PH VENOUS,POC 7.39 pH Units (7.32-7.43)
[2023-04-30 22:08] LABS: A/G RATIO 1.5; ACETAMINOPHEN 5 ug/mL (<2); ALANINE AMINOTRANSFERASE,ALT 26 U/L (12-36); ALBUMIN 3.9 g/dL (3.5-5.2); ALKALINE PHOSPHATASE 115 IU/L (56-112); ASPARTATE AMNIOTRANSFERASE,AST 17 IU/L (5-25); BILIRUBIN TOTAL 0.2 mg/dL (0.1-1.3); MAGNESIUM 2.1 mg/dL (1.8-2.5); PROTEIN TOTAL,TP 6.5 g/dL (6.0-8.0); SALICYLATE 2.7 mg/dL (<2.8)
[2023-04-30 22:12] LABS: BILIRUBIN,URINE NEGATIVE (NEGATIVE); GLUCOSE,URINE NORMAL (NORMAL); KETONES,URINE NEGATIVE (NEGATIVE); LEUKOCYTE ESTERASE,URINE NEGATIVE (NEGATIVE); NITRITE,URINE NEGATIVE (NEGATIVE); OCCULT BLOOD,URINE NEGATIVE (NEGATIVE); PROTEIN,URINE NEGATIVE (NEGATIVE); UROBILINOGEN,URINE NORMAL (NEGATIVE)
[2023-04-30 22:13] LABS: APPEARANCE,URINE CLEAR (CLEAR); BACTERIA,URINE OCCASIONAL (NS); COLOR,URINE YELLOW (YELLOW); RBC,URINE 0-5 (0-5); SQUAMOUS EPITHELIAL CELLS,UR FEW (NS,R,O); WBC,URINE 0-5 (0-5)
[2023-04-30 22:20] LABS: AMPHETAMINES SCREEN, URINE POSITIVE (NEGATIVE); BARBITURATE SCREEN,URINE NEGATIVE (NEGATIVE); BENZODIAZEPINES SCREEN,URINE NEGATIVE (NEGATIVE); METHADONE SCREEN, URINE NEGATIVE (NEGATIVE); METHAMPHETAMINE SCREEN, URINE NEGATIVE (NEGATIVE); OXYCODONE SCREEN,URINE NEGATIVE (NEGATIVE); PROPOXYPHENE SCREEN,URINE NEGATIVE (NEGATIVE); THC SCREEN,URINE NEGATIVE (NEGATIVE)
[2023-04-30 22:21] LABS: BUPRENORPHINE SCREEN,URINE NEGATIVE (NEGATIVE)
[2023-04-30] MEDS ORDERED: Sodium Chloride 0.9% 1,000 ML IV SCH (22:30)
[2023-05-01 06:48] VITALS: BP 115/77; PULSE 96
== END 2023-04-30 23:00 ==
LOC: FB.ED 21:35
DX: T50.912A Poisoning by multiple unspecified drugs, medicaments and biological substances, intentional self-harm, initial encounter (principal); J96.90 Respiratory failure, unspecified, unspecified whether with hypoxia or hypercapnia; E66.9 Obesity, unspecified; Z68.30 Body mass index [BMI] 30.0-30.9, adult; Z88.5 Allergy status to narcotic agent
CPT/HCPCS: 31500; 36410; 36415; 43752-52; 71045; 80053; 80143; 80179; 80307; 81001; 83605; 83735; 84484; 85025; 93005; 93010; 96361; 96374; 99291; 99291-25; J2250; J2310; J2704; J3490; J7030; J7040

== ENCOUNTER 2023-08-01 21:32 | Emergency (ER) | payer MEDICARE, MEDICAID ==
[2023-08-01 22:12] VITALS: BP 130/76; PULSE 88
== END 2023-08-01 23:04 | disposition left against medical advice (07) ==
LOC: FB.ED 21:32
DX: M54.50 Low back pain, unspecified (principal); G89.29 Other chronic pain; E66.9 Obesity, unspecified; Z68.43 Body mass index [BMI] 50.0-59.9, adult; Z88.5 Allergy status to narcotic agent; Z79.899 Other long term (current) drug therapy; Z72.0 Tobacco use
CPT/HCPCS: 99283

== ENCOUNTER 2023-09-15 16:45 | Emergency (ER) | payer MEDICARE, MEDICAID ==
[2023-09-15] MEDS ORDERED: Lidocaine 1% 20 ML MDV INFILT ONE (16:46)
[2023-09-15] MEDS ORDERED: Lidocaine/Epineph/Tetracaine 3 ML Syringe TOP ONE (17:00)
[2023-09-15] MEDS ORDERED: Amoxicillin/Clavulanate K 875-125 MG Tab PO ONE (18:09)
[2023-09-15] MEDS ORDERED: Diphtheria,Pertussis(Acell),Tetanus Vaccine 0.5 ML Syringe IM ONE (18:11)
[2023-09-15 18:44] VITALS: BP 153/90; PULSE 79
== END 2023-09-15 18:30 | disposition home or self-care (01) ==
LOC: FB.ED 16:45
DX: S01.81XA Laceration without foreign body of other part of head, initial encounter (principal); S01.411A Laceration without foreign body of right cheek and temporomandibular area, initial encounter; S01.85XA Open bite of other part of head, initial encounter; E66.9 Obesity, unspecified; Z79.899 Other long term (current) drug therapy; Z88.5 Allergy status to narcotic agent; W54.0XXA Bitten by dog, initial encounter
CPT/HCPCS: 12013; 90471; 90715; 99283; 99284-25; A9270-GY

== ENCOUNTER 2023-09-20 15:42 | Inpatient (IN) | payer MEDICARE, MEDICAID ==
[2023-09-20] MEDS: Sodium Chloride 0.9% 10 ML Syringe FLUSH PRN ×2 (16:06→22:36)
[2023-09-20] MEDS ORDERED: Piperacillin/Tazobactam 4.5 GM in Sodium Chloride 0.9% 100 ML IV SCH (16:15)
[2023-09-20 16:41] LABS: EOSINOPHILS ABSOLUTE AUTO 0.3 x10-3/uL (0.0-0.8); LYMPHOCYTES ABSOLUTE AUTO 0.9 x10-3/uL (1.0-4.4); MONOCYTES ABSOLUTE AUTO 0.3 x10-3/uL (0.3-1.0); NEUTROPHILS ABSOLUTE AUTO 2.4 x10-3/uL (1.5-6.3)
[2023-09-20 16:43] LABS: BASOPHILS ABSOLUTE AUTO 0.1 x10-3/uL (0.0-0.1); BASOPHILS PERCENT AUTO 1.5 % (0.2-1.5); EOSINOPHILS PERCENT AUTO 8.4 % (0.6-8.1); HEMATOCRIT 33.4 % (34.2-48.2); HEMOGLOBIN 11.1 g/dL (11.4-15.5); LYMPHOCYTES PERCENT AUTO 22.1 % (18.4-52.1); MEAN CORPUSCULAR HEMOGLOBIN 28.3 pg (23.9-33.9); MEAN CORPUSCULAR HGB CONC 33.3 g/dL (31.9-34.8); MEAN CORPUSCULAR VOLUME 84.9 fL (76.7-100.5); MEAN PLATELET VOLUME 8.8 fL (7.1-12.4); MONOCYTES PERCENT AUTO 8.2 % (4.4-15.7); NEUTROPHILS PERCENT AUTO 59.8 % (30.8-76.2); PLATELET COUNT,PLT 243 x10(3)uL (151-488); RED BLOOD CELL COUNT 3.93 x10(6)uL (3.60-5.20); RED CELL DISTRIBUTION WIDTH 15.1 % (12.3-16.5)
[2023-09-20 16:46] LABS: BLOOD UREA NITROGEN,BUN 19 mg/dL (7-18); BUN/CREATININE RATIO 21.1 (9-20); CALCIUM 8.3 mg/dL (8.6-10.2); CARBON DIOXIDE,CO2 24 mmol/L (21-32); CHLORIDE,CL 105 mmol/L (100-110); CREATININE 0.9 mg/dL (0.55-1.02); ESTIMATED GFR 75 mL/min (>60); GLUCOSE RANDOM 111 mg/dL (80-116); POTASSIUM,K 3.8 mmol/L (3.5-5.3); SODIUM,NA 137 mmol/L (135-145)
[2023-09-20 16:57] LABS: LACTIC ACID 1.3 mmol/L (0.4-2.0)
[2023-09-20 16:58] LABS: ALANINE AMINOTRANSFERASE,ALT 31 U/L (12-36); ALKALINE PHOSPHATASE 107 IU/L (56-112); ASPARTATE AMNIOTRANSFERASE,AST 19 IU/L (5-25); BILIRUBIN TOTAL 0.2 mg/dL (0.1-1.3)
[2023-09-20] MEDS ORDERED: Acetaminophen 325 MG Tab PO PRN (17:38)
[2023-09-20] MEDS ORDERED: Morphine 2 MG/ML SYRINGE IVPUSH PRN (17:38)
[2023-09-20] MEDS ORDERED: Ondansetron 4 MG/2 ML SDV IV PRN (17:38)
[2023-09-20] MEDS ORDERED: Sennosides/Docusate Sodium 50-8.6 MG Tab PO PRN (17:38)
[2023-09-20] MEDS: Enoxaparin 40 MG/0.4 ML Syringe SUBCUT SCH (20:24)
[2023-09-20] MEDS ORDERED: traZODone 50 MG Tab PO PRN (21:34)
[2023-09-20] MEDS: Piperacillin/Tazobactam 4.5 GM in Sodium Chloride 0.9% 100 ML IV SCH (22:05)
[2023-09-21] MEDS: Piperacillin/Tazobactam 4.5 GM in Sodium Chloride 0.9% 100 ML IV SCH ×4 (04:02→21:48)
[2023-09-21] MEDS: Sodium Chloride 0.9% 10 ML Syringe FLUSH PRN ×5 (04:40→22:42)
[2023-09-21 06:29] LABS: BASOPHILS ABSOLUTE AUTO 0.1 x10-3/uL (0.0-0.1); BASOPHILS PERCENT AUTO 1.2 % (0.2-1.5); EOSINOPHILS ABSOLUTE AUTO 0.4 x10-3/uL (0.0-0.8); EOSINOPHILS PERCENT AUTO 9.5 % (0.6-8.1); HEMATOCRIT 32.7 % (34.2-48.2); HEMOGLOBIN 10.7 g/dL (11.4-15.5); LYMPHOCYTES ABSOLUTE AUTO 1.2 x10-3/uL (1.0-4.4); LYMPHOCYTES PERCENT AUTO 29.8 % (18.4-52.1); MEAN CORPUSCULAR HEMOGLOBIN 27.7 pg (23.9-33.9); MEAN CORPUSCULAR HGB CONC 32.8 g/dL (31.9-34.8); MEAN CORPUSCULAR VOLUME 84.4 fL (76.7-100.5); MEAN PLATELET VOLUME 8.8 fL (7.1-12.4); MONOCYTES ABSOLUTE AUTO 0.4 x10-3/uL (0.3-1.0); MONOCYTES PERCENT AUTO 10.9 % (4.4-15.7); NEUTROPHILS PERCENT AUTO 48.6 % (30.8-76.2); PLATELET COUNT,PLT 240 x10(3)uL (151-488); RED BLOOD CELL COUNT 3.87 x10(6)uL (3.60-5.20); RED CELL DISTRIBUTION WIDTH 15.1 % (12.3-16.5); WHITE BLOOD CELL COUNT,WBC 4.1 x10-3/uL (3.0-10.3)
[2023-09-21 06:39] LABS: A/G RATIO 1.1; ALANINE AMINOTRANSFERASE,ALT 23 U/L (12-36); ALKALINE PHOSPHATASE 107 IU/L (56-112); ASPARTATE AMNIOTRANSFERASE,AST 9 IU/L (5-25); BILIRUBIN TOTAL 0.3 mg/dL (0.1-1.3); BLOOD UREA NITROGEN,BUN 15 mg/dL (7-18); BUN/CREATININE RATIO 18.8 (9-20); CALCIUM 8.3 mg/dL (8.6-10.2); CARBON DIOXIDE,CO2 24 mmol/L (21-32); CHLORIDE,CL 109 mmol/L (100-110); CREATININE 0.8 mg/dL (0.55-1.02); EST CRCL DRUG DOSING (CG) 64.95 mL/min; ESTIMATED GFR 86 mL/min (>60); GLUCOSE RANDOM 100 mg/dL (80-116); POTASSIUM,K 3.8 mmol/L (3.5-5.3); PROTEIN TOTAL,TP 5.7 g/dL (6.0-8.0); SODIUM,NA 140 mmol/L (135-145)
[2023-09-21] MEDS ORDERED: traZODone 50 MG Tab PO PRN (09:03)
[2023-09-21] MEDS ORDERED: Furosemide 20 MG Tab PO PRN (09:03)
[2023-09-21] MEDS: Acetaminophen 500 MG Tab PO PRN (09:49)
[2023-09-21] MEDS: Formoterol/Mometasone 100-5 MCG 8.8 GM Inhaler IH SCH ×3 (10:06→21:20)
[2023-09-21] MEDS ORDERED: Iopamidol 755 Mg/ML 100 ML Bottle IV ONE (10:28)
[2023-09-21] MEDS ORDERED: buPROPion 150 MG Tab.ER PO SCH (21:00)
[2023-09-21] MEDS: Saccharomyces Boulardii (Probiotic) 250 MG Cap PO SCH (21:12)
[2023-09-21] MEDS: DULoxetine 60 MG Cap PO SCH (21:12)
[2023-09-21] MEDS: Pregabalin 75 MG Cap PO SCH (21:13)
[2023-09-21] MEDS: Enoxaparin 40 MG/0.4 ML Syringe SUBCUT SCH (21:17)
[2023-09-22] MEDS: Piperacillin/Tazobactam 4.5 GM in Sodium Chloride 0.9% 100 ML IV SCH ×2 (03:25→10:17)
[2023-09-22] MEDS: Acetaminophen 500 MG Tab PO PRN (03:28)
[2023-09-22] MEDS: Sodium Chloride 0.9% 10 ML Syringe FLUSH PRN (04:02)
[2023-09-22 07:18] LABS: BASOPHILS PERCENT AUTO 0.9 % (0.2-1.5); EOSINOPHILS ABSOLUTE AUTO 0.3 x10-3/uL (0.0-0.8); EOSINOPHILS PERCENT AUTO 8.7 % (0.6-8.1); HEMATOCRIT 32.5 % (34.2-48.2); HEMOGLOBIN 10.8 g/dL (11.4-15.5); LYMPHOCYTES ABSOLUTE AUTO 1.2 x10-3/uL (1.0-4.4); LYMPHOCYTES PERCENT AUTO 32.7 % (18.4-52.1); MEAN CORPUSCULAR HEMOGLOBIN 27.9 pg (23.9-33.9); MEAN CORPUSCULAR HGB CONC 33.1 g/dL (31.9-34.8); MEAN CORPUSCULAR VOLUME 84.1 fL (76.7-100.5); MEAN PLATELET VOLUME 8.7 fL (7.1-12.4); MONOCYTES ABSOLUTE AUTO 0.3 x10-3/uL (0.3-1.0); MONOCYTES PERCENT AUTO 8.4 % (4.4-15.7); NEUTROPHILS ABSOLUTE AUTO 1.7 x10-3/uL (1.5-6.3); NEUTROPHILS PERCENT AUTO 49.3 % (30.8-76.2); PLATELET COUNT,PLT 231 x10(3)uL (151-488); RED BLOOD CELL COUNT 3.86 x10(6)uL (3.60-5.20); WHITE BLOOD CELL COUNT,WBC 3.5 x10-3/uL (3.0-10.3)
[2023-09-22 07:32] LABS: A/G RATIO 1.1; ALANINE AMINOTRANSFERASE,ALT 24 U/L (12-36); ALBUMIN 2.9 g/dL (3.5-5.2); ALKALINE PHOSPHATASE 98 IU/L (56-112); ASPARTATE AMNIOTRANSFERASE,AST 13 IU/L (5-25); BILIRUBIN TOTAL 0.3 mg/dL (0.1-1.3); BLOOD UREA NITROGEN,BUN 16 mg/dL (7-18); CALCIUM 8.5 mg/dL (8.6-10.2); CARBON DIOXIDE,CO2 26 mmol/L (21-32); CHLORIDE,CL 108 mmol/L (100-110); EST CRCL DRUG DOSING (CG) 51.96 mL/min; ESTIMATED GFR 66 mL/min (>60); GLUCOSE RANDOM 94 mg/dL (80-116); POTASSIUM,K 3.9 mmol/L (3.5-5.3); PROTEIN TOTAL,TP 5.5 g/dL (6.0-8.0); SODIUM,NA 141 mmol/L (135-145)
[2023-09-22] MEDS ORDERED: Formoterol/Mometasone 100-5 MCG 8.8 GM Inhaler IH SCH (08:15)
[2023-09-22] MEDS: Pregabalin 75 MG Cap PO SCH (08:26)
[2023-09-22] MEDS: Saccharomyces Boulardii (Probiotic) 250 MG Cap PO SCH (08:26)
[2023-09-22] MEDS: DULoxetine 60 MG Cap PO SCH (09:46)
[2023-09-22 10:34] VITALS: BP 115/55; PULSE 73
== END 2023-09-22 11:15 | disposition home or self-care (01) | DRG 603 ==
LOC: FB.ED 15:42 → FB.MS 17:54
PROVIDERS: ADMIT Emergency Medicine; ATTEND Family Medicine
DX: L03.211 Cellulitis of face (principal); S01.85XD Open bite of other part of head, subsequent encounter; S01.451D Open bite of right cheek and temporomandibular area, subsequent encounter; Z68.43 Body mass index [BMI] 50.0-59.9, adult; F33.1 Major depressive disorder, recurrent, moderate; S01.451A Open bite of right cheek and temporomandibular area, initial encounter; G43.909 Migraine, unspecified, not intractable, without status migrainosus; F41.9 Anxiety disorder, unspecified; W54.0XXD Bitten by dog, subsequent encounter; E66.9 Obesity, unspecified; G47.30 Sleep apnea, unspecified; M54.50 Low back pain, unspecified; G89.29 Other chronic pain; M79.7 Fibromyalgia; Z88.5 Allergy status to narcotic agent; Z79.899 Other long term (current) drug therapy; Z79.51 Long term (current) use of inhaled steroids; Z90.710 Acquired absence of both cervix and uterus; Z98.890 Other specified postprocedural states; Z98.84 Bariatric surgery status; Z87.891 Personal history of nicotine dependence; W54.0XXA Bitten by dog, initial encounter
CPT/HCPCS: 36415; 80053; 83605; 85025; 87040 ×2; 99284; J2543; J3490 ×2; 70487; 86140; 94640; 99222; 99238; A9270-GY; J1650; Q9967